=== PATIENT | female | born 1985 | race Caucasian/White ===

== ENCOUNTER 2017-12-25 14:58 | Emergency (ER) | payer SELFPAY ==
[~2017-12-25] VITALS: Ht 157.5 cm; Wt 81.6 kg
--- OUTSIDE RECORDS SUMMARY | 2017-12-25 15:04 | XMS REPORT ---
Author Author [facility] Medical Staff Organization [facility] Address [address] [place], [place] [address] Phone [phone] Summary purpose CCDA Sent to [facility] Chief Complaint and Reason for Visit Admit Diagnosis 1 RT WRIST PAIN Problem list No authorized problems tracked for continuity of care are available for this visit. Encounters No authorized problems tracked for encounter diagnoses are available for this visit. Medications No medications recorded for this patient visit Allergies, adverse reactions, alerts Allergen Category Ingredient Status Reaction Severity Onset morphine Drug morphine Active Immunizations No immunizations recorded for this patient visit Relevant diagnostic tests and/or laboratory data No authorized results are available for this patient visit History of procedures Procedure Code Code Type Description Date Performed Performing Physician 32764 CPT-4 EMERGENCY DEPT VISIT 12-07-2016 AYAD DE LEÓN 47827 CPT-4 X-RAY EXAM OF WRIST 12-07-2016 AYAD DE LEÓN Functional status Cognitive Status Finding Observation Time Level of Consciousne Alert 65-73-992012:01 Oriented to Person Yes 89-39-521741:[address] Yes 52-28-073928:01 Oriented to Time Yes 19-99-517614:01 Vital signs Type Value Date Respirations 18 02-26-803716:08 Pulse 76 70-68-817013:08 O2 Saturation 98% 98-62-791554:08 Systolic Blood Press 123mm/HG 20-75-204632:08 Diastolic Blood Pres 87mm/HG 77-24-945997:08 Temperature (Fahr) 99.0Degrees 11-89-400173:08 Height 62in 17-56-917536:01 Weight 180LB 61-63-494684:01 Social history Type Value Smoking Status NEVER SMOKER Treatment Plan No treatment plan text is available for this visit. Hospital discharge instructions No discharge instruction text is available for this visit.
--- OUTSIDE RECORDS SUMMARY | 2017-12-25 15:04 | XMS REPORT | Continuity Of Care Document ---
Author Author [facility] Organization [facility] Address [address] [facility] [place] [address] Phone Care Team Providers Care Land Surveying Survey Worker Name Role Phone MINH SHINE MD AT NOT NEEDED, NSP Unavailable Unavailable Results Lab Results Visit/Account #[id number] (January 23, 2016 12:38pm - January 23, 2016 3: 00pm) Test Result Date/Time 32720-3: COMPLETE BLOOD COUNT WITH DIFF WHITE BLOOD COUNT(4.0-11.0 10E3/UL) 5.8 10E3/UL January 23, 2016 1:45pm RED BLOOD COUNT(4.00-5.20 10E6/UL) 4.39 10E6/UL January 23, 2016 1:45pm HEMOGLOBIN(12.0-16.0 G/DL) 11.4 G/DL January 23, 2016 1:45pm HEMATOCRIT(36.0-46.0 %) 36.7 % January 23, 2016 1:45pm MEAN CORPUSCULAR VOLUME(82.0-100.0 FL) 83.6 FL January 23, 2016 1:45pm 28634-5: MEAN CORPUSCULAR HEMOGLOBIN(26.0-34.0 PG) 26.0 PG January 23, 2016 1:45pm MEAN CORPUSCULAR HGB CONC(31.5-36.5 G/DL) 31.1 G/DL January 23, 2016 1:45pm RED CELL DISTRIBUTION WIDTH(11.5-14.5 %) 15.9 % January 23, 2016 1:45pm 777-3: PLATELET COUNT(150-450 10E3/UL) 317 10E3/UL January 23, 2016 1:45pm MEAN PLATELET VOLUME(8.2-12.4 FL) 10.6 FL January 23, 2016 1:45pm 770-8: NEUTROPHILS % (AUTO)(40-70 %) 45 % January 23, 2016 1:45pm LYMPHOCYTES % (AUTO)(15-45 %) 44 % January 23, 2016 1:45pm 5905-5: MONOCYTES % (AUTO)(2-10 %) 8 % January 23, 2016 1:45pm 713-8: EOSINOPHILS % (AUTO)(0-6 %) 2 % January 23, 2016 1:45pm 706-2: BASOPHILS % (AUTO)(0-1 %) 1 % January 23, 2016 1:45pm 86083-6: IMMATURE GRANS % (AUTO)(0-0 %) 0 % January 23, 2016 1:45pm NUCLEATED RBCS (AUTO)(0-0 %) 0 % January 23, 2016 1:45pm 751-8: NEUTROPHILS # (AUTO)(2.5-7.5 10E3/UL) 2.6 10E3/UL January 23, 2016 1:45pm 92872-0: LYMPHOCYTES # (AUTO)(1.0-4.0 10E3/UL) 2.5 10E3/UL January 23, 2016 1:45pm 742-7: MONOCYTES # (AUTO)(0.2-0.8 10E3/UL) 0.5 10E3/UL January 23, 2016 1:45pm 711-2: EOSINOPHILS # (AUTO)(0.0-0.4 10E3/UL) 0.1 10E3/UL January 23, 2016 1:45pm 704-7: BASOPHILS # (AUTO)(0.0-0.2 10E3/UL) 0.1 10E3/UL January 23, 2016 1:45pm IMMATURE GRANS # (AUTO)(0.0-0.0 10E3/UL) 0.0 10E3/UL January 23, 2016 1:45pm DIFF TYPE AUTOMATED January 23, 2016 1:45pm UA WITH SCREEN FOR CULTURE 5778-6: COLOR,URINE YELLOW January 23, 2016 1:40pm 90920-7: CLARITY,URINE CLEAR January 23, 2016 1:40pm GLUCOSE, URINE(NEGATIVE MG/DL) NEGATIVE MG/DL January 23, 2016 1:40pm URINE BILIRUBIN(NEGATIVE) NEGATIVE January 23, 2016 1:40pm KETONES,URINE(NEGATIVE MG/DL) NEGATIVE MG/DL January 23, 2016 1:40pm URINE SPECIFIC GRAVITY(1.001-1.035) 1.015 January 23, 2016 1:40pm 37363-9: URINE BLOOD(NEGATIVE) NEGATIVE January 23, 2016 1:40pm 2756-5: URINE PH(5.0-9.0) 6.0 January 23, 2016 1:40pm URINE PROTEIN(Less than 20 MG/DL) NEGATIVE MG/DL January 23, 2016 1:40pm 81826-0: URINE UROBILINOGEN(0.2-1.0 MG/DL) 0.2 MG/DL January 23, 2016 1:40pm URINE NITRITE(NEGATIVE) NEGATIVE January 23, 2016 1:40pm 5799-2: LEUKOCYTE ESTERASE ,URINE(NEGATIVE) NEGATIVE January 23, 2016 1:40pm 630-4: URINE CULTURE NOT INDICATED January 23, 2016 1:40pm URINE MICROSCOPIC REQUIRED NO January 23, 2016 1:40pm 69030-8: COMPLETE METABOLIC PROFILE GLUCOSE(70-110 MG/DL) 79 MG/DL January 23, 2016 1:45pm BLOOD UREA NITROGEN(6-20 MG/DL) 7 MG/DL January 23, 2016 1:45pm CREATININE(0.50-1.20 MG/DL) 0.68 MG/DL January 23, 2016 1:45pm 80999-1: EST GLOMERULAR FILTRATION RATE(Greater than or equal to 60) Greater than or equal to 60 Result Comments: If the patient is of -[place] descent/extraction multiply the eGFR value by 1.212 to obtain the actual eGFR. >=60 mg/dL Normal 30-59 mg/dL Moderate Kidney Disease 15-29 mg/dL Severe Kidney Disease <15 mg/dL Kidney Failure January 23, 2016 1:45pm BUN CREATININE RATIO(10.0-20.0 RATIO) 10.0 RATIO January 23, 2016 1:45pm SODIUM(135-145 MMOL/L) 137 MMOL/L January 23, 2016 1:45pm POTASSIUM(3.6-5.0 MMOL/L) 3.8 MMOL/L January 23, 2016 1:45pm CHLORIDE(101-111 MMOL/L) 109 MMOL/L January 23, 2016 1:45pm 2028-9: CO2(21-31 MMOL/L) 24 MMOL/L January 23, 2016 1:45pm ANION GAP(8-18) 8 January 23, 2016 1:45pm OSMO CALCULATED(270.0-290.0) 270.7 January 23, 2016 1:45pm CALCIUM(8.5-10.5 MG/DL) 8.9 MG/DL January 23, 2016 1:45pm BILIRUBIN,TOTAL(0.1-1.2 MG/DL) 0.3 MG/DL January 23, 2016 1:45pm ALKALINE PHOSPHATASE(42-121 IU/L) 67 IU/L January 23, 2016 1:45pm ASPARTATE AMINO TRANSFERASE(10-42 IU/L) 20 IU/L January 23, 2016 1:45pm ALANINE AMINOTRANSFERASE(10-60 IU/L) 12 IU/L January 23, 2016 1:45pm TOTAL PROTEIN(6.4-8.2 G/DL) 7.2 G/DL January 23, 2016 1:45pm ALBUMIN(3.5-5.5 G/DL) 4.0 G/DL January 23, 2016 1:45pm GLOBULIN(2.4-3.6) 3.2 January 23, 2016 1:45pm ALBUMIN/GLOBULIN RATIO(0.9-1.8 RATIO) 1.3 RATIO January 23, 2016 1:45pm 3040-3: LIPASE 3040-3: LIPASE(22-51 U/L) 30 U/L January 23, 2016 1:45pm SERUM HCG, QUALITATIVE 2110-5: SERUM HCG, QUALITATIVE(NEGATIVE) NEGATIVE January 23, 2016 1:45pm Allergies and Adverse Reactions Allergies and Adverse Reactions Patient Unit Number: [id number] Agent Type Reaction Severity Status SULFA (SULFONAMIDE ANTIBIOTICS) Drug Adverse Reaction vomiting Unknown Active MORPHINE Drug Allergy Unknown Mild Active Problem List Problem List Visit/Account #[id number] (January 23, 2016 12:38pm - January 23, 2016 3: 00pm) Acute Problems: Code/Condition Comments Documented Start Date Documented Resolved Date Code (s) Acute left flank pain ICD10: R10.12 Acute left flank pain ICD9: 789.00 Acute left flank pain SNOMED: 899397171 Acute left flank pain Plan of Care Plan Of Care Visit/Account #[id number] (January 23, 2016 12:38pm - January 23, 2016 3: 00pm) Patient Instructions Return if worse or any concern. Call Dr. Zelaya's office for an appointment to follow-up in clinic within the next week. Notify the scheduling staff you are following up from an emergency department visit. Do not take ibuprofen while taking Toradol. Do not drive while taking Flexeril. Vital Signs Vital Signs Visit/Account #[id number] (January 23, 2016 12:38pm - January 23, 2016 3: 00pm) Sign First Result Last Result Code(s) Temperature in Fahrenheit Temperature (Fahrenheit): 99.2 [degF] On January 23, 2016 12:34pm 8310-5 Body Temperature Weight in Kilograms Weight (Kilograms): 86.5 kg On January 23, 2016 12:34pm 3141-9 Weight Measured 17282-0 Body weight measured in kilograms Functional Status Functional and Cognitive Status No Functional Status Data Medications Inpatient/Ordered Medications - Medications administered during hospital visit Visit/Account #[id number] (January 23, 2016 12:38pm - January 23, 2016 3: 00pm) Medication Route Sig/Schedule Precondition/Indication Comments/Instructions Codes IV Medication Carriers: NORMAL SALINE(SODIUM CHLORIDE) 1000 ML INJECTION Dose: 1000 ML INTRAVEN .Q1H (Rate: 1000 MLS/HR Duration: 1 HR) Carriers: Sodium Chloride 0.154 MEQ/ML Injectable Solution (RxNorm): 716859 NORMAL SALINE (SODIUM CHLORIDE) NDC: 87586444095 TORADOL INJ(KETOROLAC TROMETHAMINE) 30 MG/ML INJECTION Dose: 1 ML INTRAVEN NOW Label Comments: DO NOT EXCEED 5 DAYS OF THERAPY 1 ML Ketorolac Tromethamine 30 MG/ML Injection (RxNorm): 5137303 TORADOL INJ (KETOROLAC TROMETHAMINE) NDC: 28009998440 Discharge Medications - Medications that patient should continue to take. Review with physician Visit/Account #[id number] (January 23, 2016 12:38pm - January 23, 2016 3: 00pm) Medication Route Sig/Schedule Precondition/Indication Comments/Instructions Codes Toradol(KETOROLAC TROMETHAMINE) 10 MG TAB Dose: 1 TAB ORAL EVERY 8 HOURS Ketorolac Tromethamine 10 MG Oral Tablet (RxNorm): 777615 Toradol (KETOROLAC TROMETHAMINE) NDC: 24083865215 Flexeril(CYCLOBENZAPRINE HCL) 10 MG TAB Dose: 1 TAB ORAL EVERY 8 HOURS SPASM Cyclobenzaprine hydrochloride 10 MG Oral Tablet (RxNorm): 413041 Flexeril (CYCLOBENZAPRINE HCL) NDC: 34895868720 Deltasone(PredniSONE) 20 MG TAB Dose: 60 MG ORAL DAILY Prednisone 20 MG Oral Tablet (RxNorm): 501765 Deltasone (PredniSONE) NDC: 33145639929 History Of Encounters Encounters Visit/Account #[id number] (January 23, 2016 12:38pm - January 23, 2016 3: 00pm) Account Status Physican Of Record Reason For Visit Visit Diagnosis Start Date/Time Stop Date/Time CORBY SHINE MD PAIN IN LEFT SIDE OF BACK Not Available Jan 23, 2016 12:38pm Jan 23, 2016 3:00pm History of Procedures Procedure List No procedures recorded. Discharge Instructions Discharge Instructions Visit/Account #[id number] (January 23, 2016 12:38pm - January 23, 2016 3: 00pm) DISCHARGE INSTRUCTIONS Physician Documentation Social History Social History No Social History Data. Immunizations Immunizations Patient Unit Number: [id number] Immunizations No immunizations recorded.
--- OUTSIDE RECORDS SUMMARY | 2017-12-25 15:04 | XMS REPORT | Referral Summary ---
Author Author [facility] Organization [facility] Address Unknown Phone Unavailable Care Team Providers Care Organic Preparation Technician Name Role Phone No PCP, Pt States PCP Encounter VC Date(s): 10/11/15 - 10/11/15 [facility] [address] [place] [address] Discharge Diagnosis: Bite, insect Discharge Diagnosis: Insect bite and/or sting Discharge Disposition: 01-Home or Self Care Attending Physician: Odin Gan MD Admitting Physician: Odin Gan MD Vital Signs Most recent to 1 oldest [Reference Range]: Temperature Oral 36.6 degC [35.8-37.3 degC] (10/11/15 2:36 PM) Peripheral Pulse 75 bpm Rate [60-100 bpm] (10/11/15 3:19 PM) Respiratory Rate 18 br/min [14-20 br/min] (10/11/15 3:19 PM) Blood Pressure 127/83 mmHg [90-140/60-90 mmHg] (10/11/15 3:19 PM) SpO2 98 % (10/11/15 3:19 PM) Problem List No data available for this section Allergies, Adverse Reactions, Alerts Substance Reaction Severity Status morphine hives Active Medications Bactrim DS 800 mg-160 mg oral tablet 2 tabs, Oral, BID, Dr. Gan supervising physician, X 10 days, # 40 tabs, 0 Refill(s) Start Date: 10/11/15 Stop Date: 10/21/15 Status: Ordered Results Chemistry Most recent to 1 oldest [Reference Range]: U Beta hCG Ql Neg (10/11/15 3:05 PM) Immunizations No data available for this section Procedures No data available for this section Social History Social History Type Response Smoking Status Never smoker Assessment and Plan No data available for this section
--- OUTSIDE RECORDS SUMMARY | 2017-12-25 15:04 | XMS REPORT | Continuity Of Care Document ---
Author Author [facility] Organization [facility] Address [address] [facility] [place] [address] Phone Care Team Providers Care Sheet Ironworker Name Role Phone NON STAFF, PROVIDER Unavailable Unavailable CURTIS VAZQUEZ DO AT Results Results No results recorded. Allergies and Adverse Reactions Allergies and Adverse Reactions Patient Unit Number: [id number] Agent Type Reaction Severity Status SULFA (SULFONAMIDE ANTIBIOTICS) Drug Adverse Reaction vomiting Unknown Active MORPHINE Drug Allergy Unknown Mild Active Problem List Problem List Visit/Account #[id number] (November 02, 2016 11:03am - November 02, 2016 12:12pm) Acute Problems: Code/Condition Comments Documented Start Date Documented Resolved Date Code (s) De Quervain's disease (tenosynovitis) ICD10: M65.4 De Quervain's disease (tenosynovitis) SNOMED: 00200350 Radial styloid tenosynovitis Wrist pain, right ICD10: M25.531 Wrist pain, right SNOMED: 74896912 Right wrist pain Plan of Care Plan Of Care Visit/Account #[id number] (November 02, 2016 11:03am - November 02, 2016 12:12pm) Patient Instructions Wear wrist splint for next 2 weeks. Take Medrol Dose Pack as prescribed. Take Naprosyn as prescribed. Do not take additional NSAIDs with this product. Call [facility] to establish care and for follow-up if symptoms persist in next 1-2 weeks. Return to ED for new concerns or worsening of symptoms. Vital Signs Vital Signs Visit/Account #[id number] (November 02, 2016 11:03am - November 02, 2016 12:12pm) Sign First Result Last Result Code(s) Temperature in Fahrenheit Temperature (Fahrenheit): 98.2 [degF] On November 02, 2016 11:03am Temperature (Fahrenheit): 98.2 [degF] On November 02, 2016 12:10pm 8310-5 Body Temperature Functional Status Functional and Cognitive Status No Functional Status Data Medications Inpatient/Ordered Medications - Medications administered during hospital visit Visit/Account #[id number] (November 02, 2016 11:03am - November 02, 2016 12:12pm) Medication Route Sig/Schedule Precondition/Indication Comments/Instructions Codes TORADOL INJ(KETOROLAC TROMETHAMINE) 60 MG/2 ML VIAL Dose: 1 ML INTRAMUSC NOW 2 ML Ketorolac Tromethamine 30 MG/ML Injection (RxNorm): 9244124 TORADOL INJ (KETOROLAC TROMETHAMINE) NDC: 85573318930 Discharge Medications - Medications that patient should continue to take. Review with physician Visit/Account #[id number] (November 02, 2016 11:03am - November 02, 2016 12:12pm) Medication Route Sig/Schedule Precondition/Indication Comments/Instructions Codes NAPROSYN(NAPROXEN) 500 MG TABLET Dose: 500 MG ORAL TWICE A DAY Naproxen 500 MG Oral Tablet [Naprosyn] (RxNorm): 595031 NAPROSYN (NAPROXEN) NDC: 11659587327 Medrol Dose Pack(MethylPREDNISolone) 4 MG TAB.DS.PK Dose: 1 TAB ORAL DIRECTED Rx Instructions: PER PACKAGE INSTRUCTIONS {21 (Methylprednisolone 4 MG Oral Tablet) } Pack (RxNorm): 483464 Medrol Dose Pack (MethylPREDNISolone) NDC: 32102748620 History Of Encounters Encounters Visit/Account #[id number] (November 02, 2016 11:03am - November 02, 2016 12:12pm) Account Status Physican Of Record Reason For Visit Visit Diagnosis Start Date/Time Stop Date/Time CORBY VAZQUEZ DO RT WRIST INJURY M25.531: PAIN IN RIGHT WRIST ICD10 Nov 02, 2016 11:03am Nov 02, 2016 12:12pm History of Procedures Procedure List No procedures recorded. Discharge Instructions Discharge Instructions Visit/Account #[id number] (November 02, 2016 11:03am - November 02, 2016 12:12pm) DISCHARGE INSTRUCTIONS Physician Documentation Social History Social History No Social History Data. Immunizations Immunizations Patient Unit Number: [id number] Immunizations No immunizations recorded.
--- OUTSIDE RECORDS SUMMARY | 2017-12-25 15:05 | XMS REPORT | Continuity Of Care Document ---
Author Author [facility] Organization [facility] Address [address] [facility] [place] [address] Phone Care Team Providers Care Sr. Consultant Name Role Phone Unavailable Unavailable CURTIS VAZQUEZ DO AT Results Lab Results Visit/Account #[id number] (March 08, 2017 11:13am - March 08, 2017 1:05pm ) Test Result Date/Time COMPLETE BLOOD COUNT WITH DIFF WHITE BLOOD COUNT(4.0-11.0 10E3/UL) 7.9 10E3/UL March 08, 2017 11:31am RED BLOOD COUNT(4.00-5.20 10E6/UL) 4.69 10E6/UL March 08, 2017 11:31am HEMOGLOBIN(12.0-16.0 G/DL) 13.3 G/DL March 08, 2017 11:31am HEMATOCRIT(36.0-46.0 %) 40.8 % March 08, 2017 11:31am MEAN CORPUSCULAR VOLUME(82.0-100.0 FL) 87.0 FL March 08, 2017 11:31am MEAN CORPUSCULAR HEMOGLOBIN(26.0-34.0 PG) 28.4 PG March 08, 2017 11:31am MEAN CORPUSCULAR HGB CONC(31.5-36.5 G/DL) 32.6 G/DL March 08, 2017 11:31am RED CELL DISTRIBUTION WIDTH(11.5-14.5 %) 14.7 % March 08, 2017 11:31am 777-3: PLATELET COUNT(150-450 10E3/UL) 297 10E3/UL March 08, 2017 11:31am MEAN PLATELET VOLUME(8.2-12.4 FL) 10.7 FL March 08, 2017 11:31am NEUTROPHILS % (AUTO)(40-70 %) 51 % March 08, 2017 11:31am LYMPHOCYTES % (AUTO)(15-45 %) 36 % March 08, 2017 11:31am MONOCYTES % (AUTO)(2-10 %) 9 % March 08, 2017 11:31am EOSINOPHILS % (AUTO)(0-6 %) 3 % March 08, 2017 11:31am BASOPHILS % (AUTO)(0-1 %) 1 % March 08, 2017 11:31am IMMATURE GRANS % (AUTO)(0-0 %) 0 % March 08, 2017 11:31am NUCLEATED RBCS (AUTO)(0-0 %) 0 % March 08, 2017 11:31am NEUTROPHILS # (AUTO)(2.5-7.5 10E3/UL) 4.0 10E3/UL March 08, 2017 11:31am LYMPHOCYTES # (AUTO)(1.0-4.0 10E3/UL) 2.8 10E3/UL March 08, 2017 11:31am MONOCYTES # (AUTO)(0.2-0.8 10E3/UL) 0.7 10E3/UL March 08, 2017 11:31am EOSINOPHILS # (AUTO)(0.0-0.4 10E3/UL) 0.2 10E3/UL March 08, 2017 11:31am BASOPHILS # (AUTO)(0.0-0.2 10E3/UL) 0.1 10E3/UL March 08, 2017 11:31am IMMATURE GRANS # (AUTO)(0.0-0.0 10E3/UL) 0.0 10E3/UL March 08, 2017 11:31am DIFF TYPE AUTOMATED March 08, 2017 11:31am UA WITH SCREEN FOR CULTURE COLOR,URINE LIGHT YELLOW March 08, 2017 11:31am CLARITY,URINE CLEAR March 08, 2017 11:31am GLUCOSE, URINE(NEGATIVE MG/DL) NEGATIVE MG/DL March 08, 2017 11:31am URINE BILIRUBIN(NEGATIVE) NEGATIVE March 08, 2017 11:31am KETONES,URINE(NEGATIVE MG/DL) NEGATIVE MG/DL March 08, 2017 11:31am URINE SPECIFIC GRAVITY(1.001-1.035) 1.011 March 08, 2017 11:31am URINE BLOOD(NEGATIVE) NEGATIVE March 08, 2017 11:31am URINE PH(5.0-9.0) 5.5 March 08, 2017 11:31am URINE PROTEIN(Less than 20 MG/DL) NEGATIVE MG/DL March 08, 2017 11:31am URINE UROBILINOGEN(0.2-1.0 MG/DL) 0.2-1.0 MG/DL March 08, 2017 11:31am URINE NITRITE(NEGATIVE) NEGATIVE March 08, 2017 11:31am LEUKOCYTE ESTERASE ,URINE(NEGATIVE) NEGATIVE March 08, 2017 11:31am URINE CULTURE NOT INDICATED March 08, 2017 11:31am URINE MICROSCOPIC REQUIRED NO March 08, 2017 11:31am COMPLETE METABOLIC PROFILE GLUCOSE(70-110 MG/DL) 83 MG/DL March 08, 2017 11:31am BLOOD UREA NITROGEN(6-20 MG/DL) 14 MG/DL March 08, 2017 11:31am CREATININE(0.50-1.20 MG/DL) 0.74 MG/DL March 08, 2017 11:31am EST GLOMERULAR FILTRATION RATE(Greater than or equal to 60) Greater than or equal to 60 Result Comments: If the patient is of -[place] descent/extraction multiply the eGFR value by 1.212 to obtain the actual eGFR. >=60 mg/dL Normal 30-59 mg/dL Moderate Kidney Disease 15-29 mg/dL Severe Kidney Disease <15 mg/dL Kidney Failure March 08, 2017 11:31am BUN CREATININE RATIO(10.0-20.0 RATIO) 19.0 RATIO March 08, 2017 11:31am SODIUM(135-145 MMOL/L) 138 MMOL/L March 08, 2017 11:31am POTASSIUM(3.6-5.0 MMOL/L) 3.9 MMOL/L March 08, 2017 11:31am CHLORIDE(101-111 MMOL/L) 105 MMOL/L March 08, 2017 11:31am CO2(21-31 MMOL/L) 26 MMOL/L March 08, 2017 11:31am ANION GAP(8-18) 11 March 08, 2017 11:31am OSMO CALCULATED(270.0-290.0) 275.3 March 08, 2017 11:31am CALCIUM(8.5-10.5 MG/DL) 9.7 MG/DL March 08, 2017 11:31am BILIRUBIN,TOTAL(0.1-1.2 MG/DL) 0.4 MG/DL March 08, 2017 11:31am ALKALINE PHOSPHATASE(42-121 IU/L) 72 IU/L March 08, 2017 11:31am ASPARTATE AMINO TRANSFERASE(10-42 IU/L) 19 IU/L March 08, 2017 11:31am ALANINE AMINOTRANSFERASE(10-60 IU/L) 10 IU/L March 08, 2017 11:31am TOTAL PROTEIN(6.4-8.2 G/DL) 7.3 G/DL March 08, 2017 11:31am ALBUMIN(3.5-5.5 G/DL) 4.1 G/DL March 08, 2017 11:31am GLOBULIN(2.4-3.6) 3.2 March 08, 2017 11:31am ALBUMIN/GLOBULIN RATIO(0.9-1.8 RATIO) 1.3 RATIO March 08, 2017 11:31am LIPASE LIPASE(22-51 U/L) 25 U/L March 08, 2017 11:31am SERUM HCG, QUALITATIVE SERUM HCG, QUALITATIVE(NEGATIVE) NEGATIVE March 08, 2017 11:31am Allergies and Adverse Reactions Allergies and Adverse Reactions Patient Unit Number: [id number] Agent Type Reaction Severity Status SULFA (SULFONAMIDE ANTIBIOTICS) Drug Adverse Reaction vomiting Unknown Active MORPHINE Drug Allergy Unknown Mild Active Problem List Problem List Visit/Account #[id number] (March 08, 2017 11:13 - March 08, 2017 1:05pm ) Active Problems: Code/Condition Comments Documented Start Date Documented Resolved Date Code (s) R11.2 NAUSEA WITH VOMITING, UNSPECIFIED March 08, 2017 M54.9 DORSALGIA, UNSPECIFIED March 08, 2017 Plan of Care Plan Of Care Visit/Account #[id number] (March 08, 2017 11:13am - March 08, 2017 1:05pm ) Patient Instructions Return to the ED for any concerns. Take the zofran every 6 hours as needed for nausea, the norco 1-2 tablets every 6hours as needed for pain. Vital Signs Vital Signs No Vital Signs Data. Functional Status Functional and Cognitive Status No Functional Status Data Medications Inpatient/Ordered Medications - Medications administered during hospital visit Visit/Account #[id number] (March 08, 2017 11:13am - March 08, 2017 1:05pm ) Medication Route Sig/Schedule Precondition/Indication Comments/Instructions Codes SUBLIMAZE INJ(FentaNYL CITRATE) 100 MCG/2 ML INJECTION Dose: 1.5 ML INTRAVEN NOW Label Comments: MAY INCREASE FALL RISK SUBLIMAZE INJ (FentaNYL CITRATE) NDC: 16521382876 ZOFRAN INJ(ONDANSETRON HCL) 4 MG/2 ML INJECTION Dose: 2 ML INTRAVEN RIVER Label Comments: SLOW IV PUSH MAY BE SUBSTITUTED FOR ANZEMET (DOLASETRON) MAY INCREASE FALL RISK ZOFRAN INJ (ONDANSETRON HCL) NDC: 67740974557 IV Medication Carriers: NORMAL SALINE(SODIUM CHLORIDE) 1000 ML INJECTION Dose: 1000 ML INTRAVEN .Q1H (Rate: 1000 MLS/HR Duration: 1 HR) Carriers: NORMAL SALINE (SODIUM CHLORIDE) NDC: 34198477385 Discharge Medications - Medications that patient should continue to take. Review with physician Visit/Account #[id number] (March 08, 2017 11:13am - March 08, 2017 1:05pm ) Medication Route Sig/Schedule Precondition/Indication Comments/Instructions Codes NORCO 5-325 TABLET(HYDROcodone BIT/ACETAMINOPHEN) 1 EACH TABLET Dose: 1-2 TAB ORAL Q6S PAIN NORCO 5-325 TABLET (HYDROcodone BIT/ACETAMINOPHEN) NDC: 07670012300 ZOFRAN ODT(ONDANSETRON) 4 MG TAB.RAPDIS Dose: 4 MG ORAL Q6S NAUSEA/VOMITING ZOFRAN ODT (ONDANSETRON) NDC: 68941121176 History Of Encounters Encounters Visit/Account #[id number] (March 08, 2017 11:13am - March 08, 2017 1:05pm ) Account Status Physican Of Record Reason For Visit Visit Diagnosis Start Date/Time Stop Date/Time DO DAVEY TORRES M79.1: MYALGIA ICD10 Mar 08, 2017 11:13am Mar 08, 2017 1:05pm History of Procedures Procedure List No procedures recorded. Discharge Instructions Discharge Instructions Visit/Account #[id number] (March 08, 2017 11:13am - March 08, 2017 1:05pm ) DISCHARGE INSTRUCTIONS Physician Documentation Social History Social History No Social History Data. Immunizations Immunizations Patient Unit Number: [id number] Immunizations No immunizations recorded.
--- OUTSIDE RECORDS SUMMARY | 2017-12-25 15:05 | XMS REPORT | Continuity of Care Document ---
Author Author [facility] Organization [facility] Address Unknown Phone Unavailable Allergies Active Description Code Type Severity Reaction Onset Reported/Identified Relationship to Patient Clinical Status Yes morphine NKMA N/A hives 10/11/2015 Yes MORPHINE [id number] Drug Allergy Mild N/A 01/23/2016 Yes SULFA (SULFONAMIDE ANTIBIOTICS) [id number] Drug Allergy N/A vomiting 2015 Yes morphine 1545 Drug Allergy N/A N/A 12/07/2016 Confirmed or Verified Medications Medication Packaging Start Date Stop Date Route Dosage Sig sulfamethoxazole-trimethoprim(Bactrim DS 800 mg-160 mg oral tablet ) 2 tabs 10/11/2015 10/21/2015 Oral 2 tabs, Oral, BID, for 10 days, Dr. Gan supervising physician, 40 tabs, 0 Refill(s) Problems Date Dx Coded Attending Type Code Diagnosis Diagnosed By 10/19/2015 Gan Howard Reason R22.42 Localized swelling, mass and lump, left lower limb 10/19/2015 Gan Howard Final S80.862A Insect bite (nonvenomous), left lower leg, initial encounter 10/19/2015 Gan Howard Final W57.XXXA Bitten or stung by nonvenomous insect and other nonvenomous arthropods, ini 11/03/2015 Gan Howard Reason S39.012A Strain of muscle, fascia and tendon of lower back, initial encounter 01/23/2016 MINH SHINE MD Other M54.9 DORSALGIA, UNSPECIFIED 01/23/2016 MINH SHINE MD Other R10.12 LEFT UPPER QUADRANT PAIN 01/23/2016 MINH SHINE MD Other R10.32 LEFT LOWER QUADRANT PAIN 11/02/2016 CURTIS VAZQUEZ DO Other M25.531 PAIN IN RIGHT WRIST 11/02/2016 CURTIS VAZQUEZ DO Other 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 Encounters ACCT No. Visit Date/Time Discharge Status Pt. Type Provider Facility Loc./Unit Complaint [id number] 12/07/2016 18:00:00 12/07/2016 19:10:00 DIS Emergency AYAD RAHMAN MD [facility] ER [id number] 01/23/2016 12:32:00 01/23/2016 23[facility]59:[id number] 12/20/2016 14:06:58 12/20/2016 23:59:59 CLS Outpatient Ayad Rahman [id number] 11/02/2016 11:01:00 11/02/2016 23:59:59 CLS [facility] ED [id number] 03/08/2017 11:10:00 03/08/2017 23:59:59 CLS [facility] ED [id number] 03/08/2017 11:13:00 03/08/2017 13:05:00 DIS Emergency CURTIS VAZQUEZ DO [facility] ED [id number] 11/02/2016 11:03:00 11/02/2016 12:12:00 DIS Emergency CURTIS VAZQUEZ DO [facility] ED [id number] 01/23/2016 12:38:00 01/23/2016 15:00:00 DIS Emergency FÁTIMA WORKMAN, MINH [facility] ED [id number] 10/29/2015 16:35:00 10/29/2015 18:06:00 DIS Emergency Gan Howard [facility] ED r flank pain [id number] 10/11/2015 14:27:00 10/11/2015 15:20:00 DIS Emergency Gan Howard [facility] ED L LEG SWELLING [id number] 10/12/2015 05:18:00 Document Registration
--- NOTE | 2017-12-25 15:09 | ED Integumentary General ---
General Stated Complaint: LEFT LEG SKIN ISSUE Source: patient Exam Limitations: no limitations History of Present Illness Date Seen by Provider: Dec 25, 2017 Time Seen by Provider: 15:05 Initial Comments Patient is a 32-year-old female who presents to the emergency room with complaints of insect bites all over her lower extremities. She reports that 2 days ago her and her went walking at the [facility] here in town and the bites appear shortly after. She reports that the bites have been itching she's been scratching them but her biggest concern is one of the bites at the bend of her left knee has a large area of ecchymosis around it. She denies pain reports that the itching had subsided just wanted it checked out. She denies any prior treatment. Timing/Duration: just prior to arrival Location: extremities (lower extremities bilaterally) Possible Cause: insect bite Associated Symptoms: denies symptoms Allergies and Home Medications Allergies Coded Allergies: morphine (Verified Allergy, Severe, 12/25/17) Home Medications No Active Prescriptions or Reported Meds Patient Home Medication List Home Medication List Reviewed: Yes Constitutional: see HPI; No chills, No fever Skin: see HPI, pruritus, other (insect bites) Past Kqzwhjk-Chatfk-Gtuxoe Hx Past Med/Social Hx: Reviewed Nursing Past Med/Soc Hx Patient Social History Recent Foreign Travel: No Contact w/Someone Who Travel: No Family Medical History Reviewed Nursing Family Hx Physical Exam Vital Signs Vital Signs - First Documented 12/25/17 12/25/17 14:59 15:29 Temp 98.1 Pulse 81 Resp 16 B/P (MAP) 123/77 (92) Pulse Ox 99 O2 Delivery Room Air Capillary Refill : General Appearance: WD/WN, no apparent distress Cardiovascular: regular rate, rhythm, no edema, no gallop, no JVD, no murmur Respiratory: chest non-tender, lungs clear, normal breath sounds, no respiratory distress, no accessory muscle use Neurologic/Psychiatric: alert, normal mood/affect, other (numerous insect bites all over her lower extremities. No swelling, induration, erythema noted. All the lites are scabbed over. There is 1 white that is on the posterior side of the left knee has ecchymosis in a circular pattern approximately 3 cm in diameter. No swelling or inflammation noted on this particular bite.) Skin: normal color, warm/dry Progress/Results/Core Measures Results/Orders Vital Signs/I&O 12/25/17 12/25/17 14:59 15:29 Temp 98.1 98.1 Pulse 81 81 Resp 16 16 B/P (MAP) 123/77 (92) 123/77 Pulse Ox 99 O2 Delivery Room Air Room Air Departure Impression Primary Impression: Insect bites Disposition: 01 HOME, SELF-CARE Condition: Stable/Unchanged Departure-Patient Inst. Decision time for Depature: 15:18 Referrals: NO,LOCAL PHYSICIAN (PCP) Primary Care Physician Patient Instructions: Insect Bites and Stings (DC) Add. Discharge Instructions: Follow up with [facility] within 1 week for recheck. You may use topical diphenhydramine cream and oral diphenhydramine as directed by the bottle for itching. Return back to the emergency room for any worsening symptoms or any other concerns as needed. Scripts No Active Prescriptions or Reported Meds Work/School Note: Work Release Form Date Seen in the Emergency Department: Dec 25, 2017 Return to Work: Dec 26, 2017 Restrictions: No Restrictions ESTHER GOLDEN Dec 25, 2017 15:09
[2017-12-25 15:29] VITALS: BP 123/77
== END 2017-12-25 15:29 | disposition home or self-care (01) ==
LOC: ER 14:59
DX: S80.861A Insect bite (nonvenomous), right lower leg, initial encounter (principal); S80.862A Insect bite (nonvenomous), left lower leg, initial encounter; Z88.6 Allergy status to analgesic agent; W57.XXXA Bitten or stung by nonvenomous insect and other nonvenomous arthropods, initial encounter
CPT/HCPCS: 99283

== ENCOUNTER 2018-06-05 12:50 | Emergency (ER) | payer SELFPAY, OTHER | END 2018-06-05 13:57 | disposition home or self-care (01) | LOC: ER 12:50 ==